=== PATIENT | female | born 1985 | race Caucasian/White ===

== ENCOUNTER 2022-05-28 12:40 | Outpatient (CLI) | payer BC | END 2022-05-28 12:41 | disposition home or self-care (01) | LOC: CSHLAB 12:40 | PROVIDERS: ATTEND Advanced Practice Midwife | DX: Z20.822 Contact with and (suspected) exposure to COVID-19 (principal) | CPT/HCPCS: 87811 ==

== ENCOUNTER 2022-05-30 16:09 | Inpatient (IN) | payer BC ==
[2022-05-30] MEDS ORDERED: Lidocaine 1% (PF) 30 ML VIAL ONE (16:54)
[2022-05-30] MEDS ORDERED: NS w/ Oxytocin 30 units 500 ML ONE (16:54)
[2022-05-30 17:00] VITALS: BMI 33.8
[2022-05-30] MEDS ORDERED: Lidocaine 1% (PF) 30 ML VIAL SC PRN (17:44)
[2022-05-30] MEDS ORDERED: hydrALAZINE 20 MG/ML VIAL SLOW IVP PRN ×2 (17:44→20:48)
[2022-05-30] MEDS ORDERED: Diphenoxylate HCl/Atropine Tablet PO PRN (17:44)
[2022-05-30] MEDS ORDERED: Misoprostol 200 MCG TAB PR PRN (17:44)
[2022-05-30] MEDS ORDERED: Acetaminophen 500 MG TAB PO PRN (17:44)
[2022-05-30] MEDS ORDERED: HYDROcodone/Acetaminophen 5/325 mg Tablet PO PRN ×3 (17:44→20:48)
[2022-05-30] MEDS ORDERED: Methylergonovine 0.2 MG/ML VIAL IM PRN ×2 (17:44→20:48)
[2022-05-30] MEDS ORDERED: Ibuprofen 800 MG TAB PO PRN (17:44)
[2022-05-30] MEDS ORDERED: Promethazine HCl 25 MG/ML VIAL IM PRN (17:44)
[2022-05-30] MEDS ORDERED: Ondansetron PF 4 MG/2 ML Vial IVP PRN ×2 (17:44→20:48)
[2022-05-30] MEDS ORDERED: Carboprost 250 MCG/ML AMP IM PRN (17:44)
[2022-05-30] MEDS ORDERED: Butorphanol Tartrate 1 MG/ML VIAL SLOW IVP PRN (17:44)
[2022-05-30] MEDS ORDERED: NS w/ Oxytocin 30 units 500 ML IV SCH ×3 (17:45→21:00)
[2022-05-30] MEDS ORDERED: Lactated Ringer's 1,000 ML IV SCH (17:45)
[2022-05-30 17:53] LABS: Hemoglobin 12.1 g/dL (12.0-15.5); Mean Corpuscular HGB CONC 33.3 g/dL (32.0-36.0); Mean Corpuscular Hemoglobin 29.2 pg (27.0-33.0); Mean Corpuscular Volume 87.7 fl (81.6-98.3); Mean Platelet Volume 11.6 fl (7.4-10.4); Platelet Count 191 10x3/uL (150-450); RBC Distribution Width 13.3 % (11.5-14.5); Red Blood Cell (RBC) Count 4.14 10x6/uL (3.90-5.03); White Blood Cell (WBC) Count 12.2 10x3/uL (3.5-10.5)
[2022-05-30 18:12] LABS: HBSAg Index 0.27 S/CO (0-0.99); Hep B Surf Ag Non-Reactive S/CO (NonReactive)
[2022-05-30 18:35] LABS: Syphilis Antibody Nonreactive (Nonreactive); Syphilis Antibody Index 0.03 S/CO (<1.00 Non-Reactive)
[2022-05-30] MEDS ORDERED: Tranexamic Acid 1,000 MG/10 ML VIAL ONE (19:03)
[2022-05-30] MEDS ORDERED: Misoprostol 200 MCG TAB ONE (19:03)
[2022-05-30] MEDS ORDERED: Carboprost 250 MCG/ML AMP ONE (19:04)
[2022-05-30] MEDS ORDERED: Methylergonovine 0.2 MG/ML VIAL ONE (19:04)
[2022-05-30] MEDS ORDERED: Lanolin Ointment 7 GM TUBE TOP PRN (20:48)
[2022-05-30] MEDS ORDERED: Preparation H Ointment 28 GM TUBE PR PRN (20:48)
[2022-05-30] MEDS ORDERED: Benzocaine-Menthol 82.5 ML CAN TOP PRN (20:48)
[2022-05-30] MEDS ORDERED: Bisacodyl 10 MG SUPP PR PRN (20:48)
[2022-05-30] MEDS ORDERED: Milk Of Magnesia 30 ML UDCUP PO PRN (20:48)
[2022-05-30] MEDS ORDERED: Misoprostol 200 MCG TAB VAG PRN (20:48)
[2022-05-30] MEDS: Docusate 100 MG CAP PO SCH (21:39)
[2022-05-30] MEDS: Ibuprofen 800 MG TAB PO SCH (21:54)
[2022-05-31] MEDS: HYDROcodone/Acetaminophen 5/325 mg Tablet PO PRN ×3 (02:16→20:32)
[2022-05-31] MEDS: Ibuprofen 800 MG TAB PO SCH ×2 (05:31→13:18)
[2022-05-31] MEDS: Ferrous Sulfate 325 MG TAB PO SCH ×2 (08:17→16:07)
[2022-05-31] MEDS ORDERED: Prenatal Vitamin 1 TAB PO SCH (09:00)
[2022-05-31] MEDS: Docusate 100 MG CAP PO SCH (09:15)
[2022-05-31 16:23] VITALS: BP 117/56; TEMP 98.1
== END 2022-05-31 21:20 | disposition home or self-care (01) | DRG 806 ==
LOC: CSHLD/OP 16:09 → CSHLD 16:56 → CSHPP 21:15
PROVIDERS: ADMIT Obstetrics & Gynecology; ATTEND Obstetrics & Gynecology
PROC: 10E0XZZ Delivery of Products of Conception, External Approach (ICD-10-PCS; principal; 2022-05-30)
PROC: 0UQMXZZ Repair Vulva, External Approach (ICD-10-PCS; 2022-05-30)
DX: O34.211 Maternal care for low transverse scar from previous cesarean delivery (principal); O98.32 Other infections with a predominantly sexual mode of transmission complicating childbirth; Z37.0 Single live birth; J45.909 Unspecified asthma, uncomplicated; O99.52 Diseases of the respiratory system complicating childbirth; A60.00 Herpesviral infection of urogenital system, unspecified; Z79.899 Other long term (current) drug therapy; Z3A.41 41 weeks gestation of pregnancy; O71.82 Other specified trauma to perineum and vulva; O42.02 Full-term premature rupture of membranes, onset of labor within 24 hours of rupture; O69.81X0 Labor and delivery complicated by cord around neck, without compression, not applicable or unspecified; O69.89X0 Labor and delivery complicated by other cord complications, not applicable or unspecified; Z20.822 Contact with and (suspected) exposure to COVID-19
CPT/HCPCS: 85027; 86780; 86850; 86900; 86901; 87340; 87811; J2001; J2590

== ENCOUNTER 2025-07-24 14:38 | Outpatient (CLI) | payer BC | END 2025-07-24 14:39 | disposition home or self-care (01) | LOC: CSHMAMMO 14:38 | PROVIDERS: ATTEND Internal Medicine | DX: N63.22 Unspecified lump in the left breast, upper inner quadrant (principal) | CPT/HCPCS: 77066; G0279 ==